=== PATIENT | female | born 1985 | race Caucasian/White ===

== ENCOUNTER → 2017-11-12 19:47 | Outpatient (REF) | payer MEDICAID, SELFPAY ==
[2017-11-17 06:57] LABS: Amphetamine 8684 ng/mL (Cutoff: 25); Amphetamines Interpretation Positive.; MDA (Ecstasy Metabolite) Negative ng/mL (Cutoff: 25); MDMA (Ecstasy) Negative ng/mL (Cutoff: 25); Methamphetamine Negative ng/mL (Cutoff: 25); Phentermine Negative ng/mL (Cutoff: 25); Pseudoephedrine/Ephedrine Negative ng/mL (Cutoff: 25)
== END ==
LOC: LBN 19:47
PROVIDERS: PCP Physician Assistant; Visit Provider Nurse Practitioner Family
DX: R82.5 Elevated urine levels of drugs, medicaments and biological substances (principal)
CPT/HCPCS: 80324

== ENCOUNTER 2017-12-27 12:13 | Day surgery (SDC) | payer MEDICAID, SELFPAY ==
[2017-12-27] VITALS (8 sets, daily range): BP systolic 106–142; BP diastolic 69–97; PULSE 62–100; RESP 16–18; TEMP 35.1–37.1; O2SAT 96–100
--- NOTE | 2017-12-27 12:51 | W.ED.GENAD ---
Discharge Plan Disposition Patient Disposition: [facility] INPATIENT Condition: Fair Discharge Details Chief Complaint: MD PHYSICIAN DERMATOLOGIST Clinical Impression: Bartholin's gland abscess Reason For Visit: cyst on labia Attending Provider: Live Sousa Primary Care Provider: Ashley Rivera ED Provider: Kayleen Green Discharge Instructions Activity:: Activity as Tolerated Diet:: As Tolerated Discharge Orders Discharge Orders: Discharge Order (Routine); Ordered 12/27/17 Ordered By: Live Sousa Discharge Data Discharge Date/Time-TO BE ENTERED AT DEPARTURE: 12/27/17 15:14 Medical Decision Making Patient 32-year-old female presenting today with chief complaint of left labia pain. Reports that symptoms began 5 days ago. Was seen by her primary care provider 4 days ago was concerned she may be developing an abscess and advised that she follow-up with MD PHYSICIAN DERMATOLOGIST. Patient is not yet had follow-up. She denies any fevers or chills. Denies any abdominal pain. Reports that she has pain with urination, particularly when wiping. Also endorses pain with bowel movements, particularly when straining. 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 She reports she did attempt to have surgical closure of this fistula after initial diagnosis but this failed. Patient subsequently became again and surgical intervention was delayed. Patient was recommended to have repeat surgical intervention with more extensive flap performed but has not had this performed as of yet. Reports that she is incontinent of stool through her vagina. Primary care was concerned that this may have been the source of her abscess. Denies any abdominal pain. Has not noted any discharge from the area. On exam, patient has a golf ball sized area of swelling on the left labia consistent with a Bartholin cyst. Surrounding area is erythematous and tender. Is warm to palpation. No active drainage noted. Patient appears nontoxic. She does appear uncomfortable, particular with ambulation. Noted to be slightly tachycardic at 100 bpm[address]febrile[address] Sousa regarding). We will obtain Carrillo catheter and he will come to evaluate the patient and perform incision and drainage. Discussed plan with the patient who is in agreement Was a slight delay in care as we are attempting to find a carrillo catheter. Called multiple hospital personnel and were unable to find this device. Spoke with Dr. Sousa again who came to evaluate the patient. He discussed placing a wick and having her return tomorrow forward catheter placement. After Dr. Sousa evaluate the patient and saw the size of her Bartholin cyst, he felt that marsupialization of the affected area is more appropriate and discussed taking the patient to the operating room. Operating room personnel and anesthesia evaluated the patient had patient was taken to the operating room for care of her Bartholin cyst. HPI General Mode of arrival: ambulatory. Date/Time Provider Initiated Documentation: 12/27/17 12:41. Limitations to Documentation: no limitations. Information obtained by: patient. History of Present Illness 32 year old F presents to the emergency department with the chief complaint of labial swelling, described as severe, Quality is described as burning, and is localized to the genitals and left. Patient reports no radiation. Patient started experiencing this day(s) (5) and it has been constant. No relieving factors improve symptom(s), Movement worsens symptoms . Patient notes no other symptoms.; denies cough, fever/chills, headaches, malaise and nausea/vomiting. Patient did receive the following treatments prior to arrival, NSAID and heat therapy Related Data Home Medications Medication Instructions Recorded Confirmed medroxyprogesterone [Depo-Provera] 150 mg IM Q3MO #1 syringe 11/12/17 12/27/17 lisdexamfetamine 30 mg capsule 30 mg PO QAM #28 tab-cap 12/18/17 12/27/17 oxycodone-acetaminophen [Percocet] 1 tab PO Q4H PRN PRN #20 tab 12/27/17 oxycodone-acetaminophen [Percocet] 1 tab PO Q4H PRN PRN #20 tab 12/27/17 Previous Rx's Medication Instructions Recorded medroxyprogesterone [Depo-Provera] 150 mg IM Q3MO #1 syringe 11/12/17 lisdexamfetamine 30 mg capsule 30 mg PO QAM #28 tab-cap 12/18/17 oxycodone-acetaminophen [Percocet] 1 tab PO Q4H PRN PRN #20 tab 12/27/17 oxycodone-acetaminophen [Percocet] 1 tab PO Q4H PRN PRN #20 tab 12/27/17 Allergies Allergy/AdvReac Type Severity Reaction Status Date / Time No Known Allergies Allergy Verified 12/27/17 12:32 General Stated Complaint: MD PHYSICIAN DERMATOLOGIST REENA: 4 Review of Systems Constitutional Reports as per HPI and Denies weakness Cardiovascular Denies chest pain and Denies dyspnea Respiratory Denies cough and Denies dyspnea Gastrointestinal Denies abdominal pain, Denies change in stool character, Denies diarrhea, Denies nausea and Denies vomiting Genitourinary Reports as per HPI, Denies hematuria, Denies urinary frequency, Denies genital pruritis, Reports genital lesions, Reports dysuria, Denies pelvic pain, Denies flank pain, Denies urinary urgency, Denies vaginal discharge and Denies vaginal odor Musculoskeletal Denies back pain and Denies tingling Integumentary/Breasts Reports as per HPI and Reports skin swelling (swelling and erythema to the left labia) Neurologic Denies tingling and Denies weakness Exam Const General: cooperative, healthy appearing, uncomfortable (patient appears uncomfortable), no acute distress, well developed and well groomed Nutritional Appearance: average body habitus and well nourished Orientation: alert and awake Eyes General: appearance normal, both eyes and all related structures Resp Effort & Inspection: normal respiratory effort, able to speak in complete sentences and no respiratory distress Auscultation: clear to auscultation bilaterally Cardio Rate: regular rate Rhythm: regular rhythm Heart Sounds: S1 normal and S2 normal GI Inspection: normal to inspection, abdominal wall ecchymosis, no edema and non-distended Palpation: soft, no hepatosplenomegaly, not firm, no guarding, no masses, not rigid and nontender Auscultation: normal bowel sounds External Female Exam: abnormal external appearance, erythema, externally tender, external swelling, no lacerations, no ecchymosis, No urethral discharge and bartholin cyst Skin General skin exam: erythema (To the left labia as above) Neuro General: alert and awake Cognition: normal cognition Speech: speech normal Gait: antalgic (Patient is clearly uncomfortable with ambulation and favoring the genitals) Psych Appearance: grossly normal and well kempt Mental Status: mental status grossly normal Speech and Movement: speech and movement normal Course Vital Signs Temperature 36.4 C L 12/27/17 12:28 Pulse 100 H 12/27/17 12:28 Respiratory Rate 18 12/27/17 12:28 Blood Pressure 118/73 12/27/17 12:28 Pulse Oximetry 100 12/27/17 12:28 Temperature 36.4 C L 12/27/17 12:28 Temperature Source Temporal Artery Scan 12/27/17 12:28 Pulse 100 H 12/27/17 12:28 Respiratory Rate 18 12/27/17 12:28 Respiratory Effort 12/27/17 12:31 Blood Pressure 118/73 12/27/17 12:28 Blood Pressure Position Supine 12/27/17 12:28 Pulse Oximetry 100 12/27/17 12:28 Oxygen Delivery Method Room Air 12/27/17 12:28 Oxygen Flow Rate 0 12/27/17 12:28
--- NOTE | 2017-12-27 13:10 | ED.GENADUL_ITS ---
Discharge Plan Disposition Patient Disposition: [facility] INPATIENT Condition: Fair Discharge Details Chief Complaint: BLOCK TESTER Clinical Impression: Bartholin's gland abscess Reason For Visit: cyst on labia Attending Provider: Live Sousa Primary Care Provider: Ashley Rivera ED Provider: Kayleen Green Discharge Instructions Activity:: Activity as Tolerated Diet:: As Tolerated Discharge Orders Discharge Orders: Discharge Order (Routine); Ordered 12/27/17 Ordered By: Live Souas Discharge Data Discharge Date/Time-TO BE ENTERED AT DEPARTURE: 12/27/17 15:14 Medical Decision Making Patient 32-year-old female presenting today with chief complaint of left labia pain. Reports that symptoms began 5 days ago. Was seen by her primary care provider 4 days ago was concerned she may be developing an abscess and advised that she follow-up with BLOCK TESTER. Patient is not yet had follow-up. She denies any fevers or chills. Denies any abdominal pain. Reports that she has pain with urination, particularly when wiping. Also endorses pain with bowel movements, particularly when straining. 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 She reports she did attempt to have surgical closure of this fistula after initial diagnosis but this failed. Patient subsequently became again and surgical intervention was delayed. Patient was recommended to have repeat surgical intervention with more extensive flap performed but has not had this performed as of yet. Reports that she is incontinent of stool through her vagina. Primary care was concerned that this may have been the source of her abscess. Denies any abdominal pain. Has not noted any discharge from the area. On exam , patient has a golf ball sized area of swelling on the left labia consistent with a Bartholin cyst. Surrounding area is erythematous and tender. Is warm to palpation. No active drainage noted. Patient appears nontoxic. She does appear uncomfortable, particular with ambulation. Noted to be slightly tachycardic at 100 bpm. Afebrile. Consulted with Dr. Sousa regarding). We will obtain Carrillo catheter and he will come to evaluate the patient and perform incision and drainage. Discussed plan with the patient who is in agreement Was a slight delay in care as we are attempting to find a carrillo catheter. Called multiple hospital personnel and were unable to find this device. Spoke with Dr. Sousa again who came to evaluate the patient. He discussed placing a wick and having her return tomorrow forward catheter placement. After Dr. Sousa evaluate the patient and saw the size of her Bartholin cyst, he felt that marsupialization of the affected area is more appropriate and discussed taking the patient to the operating room. Operating room personnel and anesthesia evaluated the patient had patient was taken to the operating room for care of her Bartholin cyst. HPI General Mode of arrival: ambulatory . Date/Time Provider Initiated Documentation: 12/27/17 12:41 . Limitations to Documentation: no limitations . Information obtained by: patient . History of Present Illness 32 year old F presents to the emergency department with the chief complaint of labial swelling, described as severe, Quality is described as burning, and is localized to the genitals and left. Patient reports no radiation. Patient started experiencing this day(s) (5) and it has been constant. No relieving factors improve symptom(s), Movement worsens symptoms . Patient notes no other symptoms.; denies cough, fever/chills, headaches, malaise and nausea/vomiting. Patient did receive the following treatments prior to arrival, NSAID and heat therapy Related Data Home Medications Medication Instructions Recorded Confirmed medroxyprogesterone [Depo-Provera] 150 mg IM Q3MO #1 syringe 11/12/17 12/27/17 lisdexamfetamine 30 mg capsule 30 mg PO QAM #28 tab-cap 12/18/17 12/27/17 oxycodone-acetaminophen [Percocet] 1 tab PO Q4H PRN PRN #20 tab 12/27/17 oxycodone-acetaminophen [Percocet] 1 tab PO Q4H PRN PRN #20 tab 12/27/17 Previous Rx's Medication Instructions Recorded medroxyprogesterone [Depo-Provera] 150 mg IM Q3MO #1 syringe 11/12/17 lisdexamfetamine 30 mg capsule 30 mg PO QAM #28 tab-cap 12/18/17 oxycodone-acetaminophen [Percocet] 1 tab PO Q4H PRN PRN #20 tab 12/27/17 oxycodone-acetaminophen [Percocet] 1 tab PO Q4H PRN PRN #20 tab 12/27/17 Allergies Allergy/AdvReac Type Severity Reaction Status Date / Time No Known Allergies Allergy Verified 12/27/17 12:32 General Stated Complaint: BLOCK TESTER REENA: 4 Review of Systems Constitutional Reports as per HPI and Denies weakness Cardiovascular Denies chest pain and Denies dyspnea Respiratory Denies cough and Denies dyspnea Gastrointestinal Denies abdominal pain, Denies change in stool character, Denies diarrhea, Denies nausea and Denies vomiting Genitourinary Reports as per HPI, Denies hematuria, Denies urinary frequency, Denies genital pruritis, Reports genital lesions, Reports dysuria, Denies pelvic pain, Denies flank pain, Denies urinary urgency, Denies vaginal discharge and Denies vaginal odor Musculoskeletal Denies back pain and Denies tingling Integumentary/Breasts Reports as per HPI and Reports skin swelling (swelling and erythema to the left labia) Neurologic Denies tingling and Denies weakness Exam Const General: cooperative, healthy appearing, uncomfortable (patient appears uncomfortable), no acute distress, well developed and well groomed Nutritional Appearance: average body habitus and well nourished Orientation: alert and awake Eyes General: appearance normal, both eyes and all related structures Resp Effort & Inspection: normal respiratory effort, able to speak in complete sentences and no respiratory distress Auscultation: clear to auscultation bilaterally Cardio Rate: regular rate Rhythm: regular rhythm Heart Sounds: S1 normal and S2 normal GI Inspection: normal to inspection, abdominal wall ecchymosis, no edema and non- distended Palpation: soft, no hepatosplenomegaly, not firm, no guarding, no masses, not rigid and nontender Auscultation: normal bowel sounds External Female Exam: abnormal external appearance, erythema, externally tender , external swelling, no lacerations, no ecchymosis, No urethral discharge and bartholin cyst Skin General skin exam: erythema (To the left labia as above) Neuro General: alert and awake Cognition: normal cognition Speech: speech normal Gait: antalgic (Patient is clearly uncomfortable with ambulation and favoring the genitals) Psych Appearance: grossly normal and well kempt Mental Status: mental status grossly normal Speech and Movement: speech and movement normal Course Vital Signs Temperature 36.4 C L 12/27/17 12:28 Pulse 100 H 12/27/17 12:28 Respiratory Rate 18 12/27/17 12:28 Blood Pressure 118/73 12/27/17 12:28 Pulse Oximetry 100 12/27/17 12:28 Temperature 36.4 C L 12/27/17 12:28 Temperature Source Temporal Artery Scan 12/27/17 12:28 Pulse 100 H 12/27/17 12:28 Respiratory Rate 18 12/27/17 12:28 Respiratory Effort 12/27/17 12:31 Blood Pressure 118/73 12/27/17 12:28 Blood Pressure Position Supine 12/27/17 12:28 Pulse Oximetry 100 12/27/17 12:28 Oxygen Delivery Method Room Air 12/27/17 12:28 Oxygen Flow Rate 0 12/27/17 12:28
--- NOTE | 2017-12-27 14:42 | W.PM.HP.N ---
Date of service: 12/27/17 Assessment and Plan (1) Bartholin's gland abscess: Current visit: Yes Status: Acute It was my impression that the cyst or abscess is too large to be peformed in the emergency department under local anesthetic and particularly due to the patient's discomfort. We will proceed with I&D under anesthesia. I would not recommend repair of the fistula at this point particularly in the setting of a regional infection. This should be staged at a later date unless it is found that a connection exists with the fistula to the abscess. Risks of surgery were disussed with the patient. All questions were answered to the patient's satisfaction and consent was obtained. 32 year old presents to the emergency dept with complaint of left vulvar swelling and pain that has been present for the last 4-5 days. She denies any fevers or chills. The patient does have a rectovaginal fistula following a 4th degree obstetrical laceration occurring in 2014. She did undergo a repair once but the fistula recurred. Review of Systems Review of Systems All systems reviewed & are unremarkable except as noted in HPI and below Meds Home Medications Medication Instructions Recorded Confirmed Type medroxyprogesterone [Depo-Provera] 150 mg IM Q3MO #1 syringe 11/12/17 12/27/17 Rx lisdexamfetamine 30 mg capsule 30 mg PO QAM #28 tab-cap 12/18/17 12/27/17 Rx Allergies Allergy/AdvReac Type Severity Reaction Status Date / Time No Known Allergies Allergy Verified 12/27/17 12:32 Exam Resp Auscultation: clear to auscultation bilaterally Cardio Rate: regular rate Rhythm: regular rhythm Other: On the left vulva there is a large 4-5 cm fluctuant region that appears to be a Bartholin's cyst / abscess. There is minimal erythema but it is extremely tender to touch. I was able to identify the fistula just posterior to the introitus and it does not appear to be associated with the abscess.
[2017-12-27] MEDS: Lactated Ringers 1,000 ML 125 ML IV (15:04)
--- NOTE | 2017-12-27 16:16 | W.PM.OP ---
Date of service: 12/27/17 Time of Service: 16:16 Operative Note DATE OF PROCEDURE: 12/27/17 PRE-OP DIAGNOSIS: Left Bartholin's Abscess POST-OP DIAGNOSIS: same PROCEDURE: Marsupialization of left Bartholin's Abscess and insertion of drain SURGEON: Live Sousa ANESTHESIA: EMILY ESTIMATED BLOOD LOSS: 10 PATHOLOGY: other (Wound Cultures) COMPLICATIONS: None Patient was transported to: PACU Patient's condition: stable Implants: [place] drain Findings: 4-5 cm left Bartholins abscess. No obvious connection to R-V fistula that has been longstanding. Procedure Description: The patient was taken to the operating room and after adequate general anethesia, the patient was placed in lithotomy position. The patient was prepped and draped in the usual sterile manner. A #15 blade scalpel was used to make an approximately 3 cm incision on the inner aspect of the labia. Copious purulent material was expressed. A thorough irrigation was performed. The edges of the wound were marsupialized and sewn with the abscess pocket everted against the skin edge. A 4-5 cm length of 1/4 inch arnold was sewn into the wound for drainage with a 2-0 silk suture. Excellent hemostasis was achieved. All instrumentation was removed. The procedure was concluded. Sponge, needle and instrument counts were correct at the conclusion of the procedure. The procedure was tolerated well and the patient was transferred to PACU in stable condition.
[2017-12-27] MEDS: Ketorolac 30 MG/ML VIAL IVP (17:27)
== END 2017-12-27 18:37 | disposition home or self-care (01) ==
LOC: ER 13:53 → SUR 15:15 → MS 16:39
PROVIDERS: Emergency Provider Physician Assistant; PCP Nurse Practitioner Family; Visit Provider Obstetrics & Gynecology
PROC: (CPT 56740; principal; 2017-12-27 14:55)
DX: N75.1 Abscess of Bartholin's gland (principal)
CPT/HCPCS: 56440; 81025; 87077; 99220; 99285; 87070; 87075; 87186; 87205; 99283; J0131; J1100; J1885; J2250; J2405

== ENCOUNTER 2018-09-27 00:41 | Emergency (ER) | payer MEDICAID, SELFPAY ==
[2018-09-27 00:45] VITALS: BP 113/72; PULSE 82; RESP 16; TEMP 36.8; O2SAT 99
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
[2018-09-27 01:22] VITALS: BP 111/66; PULSE 80; RESP 16; O2SAT 98
[2018-09-27 01:29] LABS: Abs Immature Grans 0.01 k/cumm (0.0-0.09); Absolute Basophil Count 0.05 k/cumm (0.0-0.2); Absolute Eosinophil Count 0.25 k/cumm (0.0-0.7); Absolute Lymphocyte Count 2.64 k/cumm (1.2-3.4); Absolute Monocyte Count 0.58 k/cumm (0.11-0.7); Absolute Neutrophil Count 7.09 k/cumm (1.2-6.7); Basophils % 0.5; Eosinophils % 2.4; HGB 13.6 g/dL (12.0-15.5); Immature Grans % 0.1; Lymphocytes % 24.9; Mean Corp. HGB Concentration 34.9 g/dL (32.0-36.0); Mean Corpuscular Hemoglobin 32.8 pg (27.0-33.0); Mean Platelet Volume 10.4 fL (8.0-11.0); Monocytes % 5.5; Neutrophils % 66.6; Platelet Count 252 x1000/uL (130-400); RBC 4.15 m/cumm (4.00-5.20); RBC Distribution Width 12.4 % (11.7-14.6); White Blood Cell Count 10.62 k/cumm (4.4-10.8)
[2018-09-27 01:42] LABS: ALT 22 U/L (12-78); AST 10 U/L (15-37); Albumin 3.9 g/dL (3.4-5.0); Alkaline Phosphatase 72 U/L (46-116); Anion Gap 11.1 mmol/L (3-11); BUN 14 mg/dL (7-18); Bilirubin, Total 0.4 mg/dL (0.2-1.0); CO2 24.9 mmol/L (21.0-32.0); CREATININE 0.82 mg/dL (0.55-1.02); Calcium 8.8 mg/dL (8.5-10.1); Chloride 106 mmol/L (98-107); Glucose 106 mg/dL (70-100); Potassium 3.3 mmol/L (3.5-5.1); Sodium 142 mmol/L (136-145); Total Protein 7.3 g/dL (6.4-8.2)
[2018-09-27] MEDS: Normal Saline 1,000 ML 150 ML IV (01:44)
--- NOTE | 2018-09-27 01:45 | DI.CT_ITS ---
SYMPTOM/DIAGNOSIS: VAGINAL BLEEDING WITH GAS PRODUCTION S/P FISTULA REPAIR ABDOMINAL AND PELVIC CT: 09/27 CT examination of the abdomen and pelvis was performed with a bolus infusion of 100 cc Omnipaque 350. Images obtained through the lung bases are unremarkable. There is an incidental approximately 1 cm right hepatic lobe peripherally nodular enhancing low attenuation lesion consistent with hemangioma. Otherwise, liver, spleen and pancreas were unremarkable. The gallbladder was contracted but otherwise unremarkable.. No biliary dilatation seen. Adrenals and kidneys appear normal. No urinary tract calcification. Abdominal aorta and major abdominal branches appear normal. No abdominal wall hernia seen. No abdominal or pelvic adenopathy seen. Appendix is normal. No evidence of bowel obstruction. The patient has reportedly had a recent fistula repair. No previous images available for comparison. There is a 14 x 14 x 18 mm in diameter fluid and gas containing peripherally enhancing collection seen adjacent to vagina and anus. The findings are suggestive of an abscess at this site. No free intraperitoneal air seen. Probable small Bartholin gland also noted on the right measuring about 10 mm in diameter but this could also represent a small infected or noninfected fluid collection.
[2018-09-27] MEDS: Omnipaque 350 MG/ML 100 ML BTL IJ (02:03)
[2018-09-27] MEDS: Normal Saline Flush 10 ML SYR IVP (02:04)
--- NOTE | 2018-09-27 02:06 | DI.VRAD_ITS ---
EXAM: CT Abdomen and Pelvis With Contrast EXAM DATE/TIME: 09/27/2018 01:06 CLINICAL HISTORY: 32 years old, female; Other: Pelvic; Prior surgery; Surgery date: <1 month; Surgery type: Rectovaginal fistula repair at [facility] 09/15/18 with anal sphincteroplasty with rectovaginal fistula closure and perineal body reconstruction. Prior repair in 2013; Patient HX: Bleeding with gas production and pain TECHNIQUE: Imaging protocol: Axial computed tomography images of the abdomen and pelvis with intravenous contrast. Coronal and sagittal reformatted images were created and reviewed. Radiation optimization: All CT scans at this facility use at least one of these dose optimization techniques: automated exposure control; mA and/or kV adjustment per patient size (includes targeted exams where dose is matched to clinical indication); or iterative reconstruction. Contrast material: OMNIPAQUE 350; Contrast volume: 83 ml; Contrast route: IV LAC; COMPARISON: No relevant prior studies available. FINDINGS: Liver: Hepatic hypodensities, too small to characterize, likely cysts. No suspicious hepatic masses. Focal fat in the liver near the fissure for the ligamentum teres. Gallbladder and bile ducts: No calcified stones. No ductal dilation. Pancreas: No ductal dilation. No masses. Spleen: No splenomegaly or focal lesions. Adrenals: No mass. Kidneys and ureters: No hydronephrosis. No renal masses. Stomach and bowel: No obstruction. No mucosal thickening. Appendix: No evidence of appendicitis. Intraperitoneal space: No free air. No significant fluid collection. Vasculature: No abdominal aortic aneurysm. Lymph nodes: No significantly enlarged lymph nodes. Bladder: Unremarkable as visualized. Reproductive: 14 x 14 x 18 mm fluid and gas containing structure, in the left paramedian perineum, probably between the vagina and anus. Faint peripheral enhancement. Small amount of fluid and debris in the vagina more anteriorly. Non-peripherally enhancing 10 mm structure right lateral vaginal wall, appearance suggests a Bartholin gland or other benign structure. Bones/joints: No acute fracture. No dislocation. Soft tissues: No suspicious lesions. IMPRESSION: 1. 14 x 14 x 18 mm fluid and gas containing structure, in the left paramedian perineum, probably between the vagina and anus. Faint peripheral enhancement. 2. Small amount of fluid and debris in the vagina more anteriorly. The findings are worrisome for a fistula and/or abscess development. 3. Non-peripherally enhancing 10 mm structure right lateral vaginal wall, appearance suggests a Bartholin gland or other benign structure. Dictated and Authenticated by: Mimi Wang MD. Ordering:HONG Reynaga MD
[2018-09-27 02:09] VITALS: BP 107/62; PULSE 79; O2SAT 98
[2018-09-27] MEDS: POTASSIUM CHLORIDE/0.9% NACL 1,000 ML 125 MEQ IV (02:48)
[2018-09-27] MEDS: PIPERACILLIN/TAZO 3.375 GM in Normal Saline 50 ML IVPB (02:48)
[2018-09-27 02:49] VITALS: BP 112/67; PULSE 83; RESP 16; TEMP 36.7; O2SAT 98
== END 2018-09-27 03:10 | disposition short-term general hospital (02) ==
PROVIDERS: Emergency Provider Emergency Medicine; PCP Nurse Practitioner Family
DX: N82.3 Fistula of vagina to large intestine (principal); N99.820 Postprocedural hemorrhage of a genitourinary system organ or structure following a genitourinary system procedure
CPT/HCPCS: 36415; 80053; 86850; 86900; 86901; 96361; 96365; 96368; 99285; 74177; 85025; 99284; J2543; J3490

== ENCOUNTER 2019-01-28 14:02 | Outpatient (REF) | payer MEDICAID, SELFPAY ==
[2019-02-01 19:04] LABS: Carboxy-THC Interpretation Positive.; Delta-9 CarboxyThc by LC-MS/MS 64 ng/mL (Cutoff:<3)
== END 2019-01-28 14:22 ==
LOC: LBN 14:02
PROVIDERS: PCP Nurse Practitioner Family; Visit Provider Nurse Practitioner Family
DX: Z51.81 Encounter for therapeutic drug level monitoring (principal)
CPT/HCPCS: 80349

== ENCOUNTER 2019-02-14 13:30 | Emergency (ER) | payer MEDICAID, SELFPAY ==
[2019-02-14 13:33] VITALS: BP 121/77; PULSE 91; RESP 16; TEMP 36.1; O2SAT 97
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
== END 2019-02-14 14:20 | disposition home or self-care (01) ==
PROVIDERS: Emergency Provider Student in an Organized Health Care Education/Training Program; PCP Nurse Practitioner Family
DX: S09.90XA Unspecified injury of head, initial encounter (principal); R20.2 Paresthesia of skin
CPT/HCPCS: 99282

== ENCOUNTER 2020-02-27 22:47 | Emergency (ER) | payer MEDICAID, SELFPAY ==
[2020-02-27 22:52] VITALS: BP 153/89; PULSE 66; RESP 20; TEMP 36.4; O2SAT 96
[2020-02-27] MEDS: Normal Saline 1,000 ML 1000 ML IV (23:00)
--- NOTE | 2020-02-27 23:00 | DI.CT_ITS ---
EXAM: CT RENAL COLIC WO INDICATION: left flank pain. COMPARISON: CT CT ABDOMEN PELVIS W from 09/27/2018 TECHNIQUE: CT examination was performed without contrast administration. FINDINGS: Images obtained through the lung bases are unremarkable. Visualized portions of the liver and splee n appear intact. Visualized portions of the pancreas are unremarkable. Gallbladder and bile ducts are CT normal. Abdominal aorta is of normal diameter. No significant abdominal wall hernia. There is an apparent enterostomy of the right upper quadrant. There is mild prominence of mesenteric lymph nodes, nonspecific. No other adenopathy identified. Adrenals appear normal bilaterally. The right kidney appears normal with no mass, hydronephrosis, or nephrolithiasis. Left kidney is moderately hydronephrotic and contains small non-obstructing stone of the midpole. Le ft ureter is dilated to the ureterovesical junction where there is an obstructing 2 millimeter in melquiades meter stone. Urinary bladder is empty. IMPRESSION: Left hydronephrosis and hydroureter secondary to an obstructing 2 millimeter in diameter left uretero vesical junction stone. Non-obstructing left renal calculus also noted. RADIATION DOSE DELIVERED: 547.71mGy.cm Total DLP
[2020-02-27] MEDS: Ketorolac 15 MG/ML VIAL IVP (23:05)
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
[2020-02-27 23:09] LABS: Abs Immature Grans 0.02 10^3/uL (0.0-0.06); Absolute Basophil Count 0.04 10^3/uL (0.0-0.2); Absolute Eosinophil Count 0.23 10^3/uL (0.0-0.7); Absolute Lymphocyte Count 2.38 10^3/uL (1.2-3.4); Absolute Neutrophil Count 6.17 10^3/uL (1.2-6.7); Basophils % 0.4; Eosinophils % 2.5; HGB 14.8 g/dL (11.2-15.7); Immature Grans % 0.2; Lymphocytes % 25.5; MCH 32.7 pg (27.0-33.0); MCHC 34.4 % (32.0-36.0); MCV 95.1 fL (80-95); MPV 10.8 fL (8.0-11.0); Monocytes % 5.4; Nucleated RBC 0 %; Platelet Count 225 10^3/uL (130-400); RBC 4.52 10^6/uL (3.93-5.22); RDW-SD 42.1 fL; WBC 9.34 10^3/uL (4.4-10.8)
[2020-02-27] MEDS: Ondansetron 4 MG/2 ML VIAL IVP (23:12)
[2020-02-27 23:23] LABS: ALT 23 U/L (14-59); AST 11 U/L (15-37); Albumin 4.3 g/dL (3.4-5.0); Alkaline Phosphatase 67 U/L (46-116); Anion Gap 7.5 mmol/L (3-11); BUN 11 mg/dL (7-18); Bilirubin, Total 0.3 mg/dL (0.2-1.0); CO2 27.5 mmol/L (21.0-32.0); CREATININE 1.01 mg/dL (0.55-1.02); Chloride 105 mmol/L (98-107); Glucose 129 mg/dL (74-106); Potassium 3.4 mmol/L (3.5-5.1); Sodium 140 mmol/L (136-145); Total Protein 7.3 g/dL (6.4-8.2)
[2020-02-27 23:24] LABS: Bilirubin, Direct 0.08 mg/dL (0.00-0.20); Bilirubin, Total 0.3 mg/dL (0.2-1.0); Lipase 315 U/L (73-393)
[2020-02-27] MEDS: HYDROmorphone 2 MG/ML VIAL 1 MG IVP (23:33)
--- NOTE | 2020-02-27 23:58 | DI.VRAD_ITS ---
PROCEDURE INFORMATION: Exam: CT Abdomen And Pelvis Without Contrast Exam date and time: 02/27/2020 11:01 PM Age: 34 years old Clinical indication: Other: L flank pain; Prior surgery; Surgery date: 1-6 months; Surgery type: Surgery 6 weeks ago , rectovaginal fistula, colostomy; Patient HX: Sudden onset of left flank pain TECHNIQUE: Imaging protocol: Computed tomography of the abdomen and pelvis without contrast. Radiation optimization: All CT scans at this facility use at least one of these dose optimization techniques: automated exposure control; mA and/or kV adjustment per patient size (includes targeted exams where dose is matched to clinical indication); or iterative reconstruction. COMPARISON: CT ABDOMEN PELVIS W 09/27/2018 1:33 AM FINDINGS: Lungs: The visualized portions of the lung bases demonstrate no acute disease. Liver: The liver is unremarkable. Gallbladder and bile ducts: The gallbladder is unremarkable. The biliary system is normal. Pancreas: The pancreas is normal. Spleen: The spleen is normal. Adrenal glands: The adrenal glands are normal. Kidneys and ureters: The right kidney is normal. The left kidney demonstrates mild perinephric fat stranding. There is mild left hydronephrosis. There is mild left ureteral nephrosis. There is a 2 mm x 2 mm stone impacted in the left UVJ. The right ureter is normal. Stomach and bowel: There is no evidence of intestinal perforation or obstruction. Appendix: No evidence of appendicitis. Intraperitoneal space: There is a small amount of free fluid noted in the pelvis. No fluid collections. No pneumoperitoneum. Vasculature: Unremarkable. No abdominal aortic aneurysm. Lymph nodes: Unremarkable. No enlarged lymph nodes. Urinary bladder: The urinary bladder is under distended and difficult to evaluate. Reproductive: Unremarkable as visualized. Bones/joints: No acute abnormality or aggressive osseous lesion. Soft tissues: There is an ostomy in the right hemiabdomen which appears unremarkable. IMPRESSION: 1. Mild left obstructive uropathy caused by a 2 mm stone impacted in the left UVJ. 2. Incidental findings as detailed above. Dictated and Authenticated by: Everett Maloney MD. Ordering:EDELMIRA Ramon MD
[2020-02-28 00:11] LABS: Bilirubin Negative (Negative); Blood Large (Negative); Clarity Sl Cloudy (Clear); Glucose Negative (Negative); Ketones Negative (Negative); Leukocyte Esterase Negative (Negative); Nitrite Negative (Negative); Specific Gravity >= 1.030 (1.005-1.025); Urobilinogen 0.2 EU/dL (Up TO 0.2)
[2020-02-28 00:14] LABS: Bacteria Few HPF (Negative); Epithelial Cells Few HPF (Negative); WBC 0-2 HPF (0-5)
[2020-02-28 00:15] LABS: C & S Indicated? No; Casts Negative LPF (Negative); Crystals Few Calcium Oxalate HPF (Negative); Mucus Negative (Negative)
[2020-02-28 00:37] VITALS: BP 121/78; PULSE 88; RESP 16; O2SAT 97
[2020-02-28 00:45] VITALS: BP 121/78; PULSE 88; RESP 16; O2SAT 97
--- NOTE | 2020-02-28 01:55 | NUR.NOTE ---
referral faxed to [facility] for a kidney stone 02/28/2020 @ 0157 libl Nursing Note:
== END 2020-02-28 00:47 | disposition home or self-care (01) ==
PROVIDERS: Emergency Provider Emergency Medicine; PCP Nurse Practitioner Family
DX: N13.2 Hydronephrosis with renal and ureteral calculous obstruction (principal)
CPT/HCPCS: 36415; 80053; 81025; 83690; 96361; 96374; 96375; 99284; 74176; 81003; 81015; 82247; 82248; 85025; J1885; J2405

== ENCOUNTER 2020-05-21 16:31 | Outpatient (REF) | payer MEDICAID, SELFPAY | END 2020-05-21 16:32 | disposition home or self-care (01) | LOC: LBN 16:31 | PROVIDERS: PCP Nurse Practitioner Family; Visit Provider Nurse Practitioner Family | DX: N82.3 Fistula of vagina to large intestine (principal) | CPT/HCPCS: 87070; 87205 ==

== ENCOUNTER 2020-05-22 16:12 | Emergency (ER) | payer MEDICAID, SELFPAY ==
[2020-05-22 16:21] VITALS: BP 134/50; PULSE 129; RESP 16; TEMP 36.3; O2SAT 100
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
[2020-05-22] MEDS: ACETAMINOPHEN 1,000 MG/100 ML BTL 400 MG IVPB (17:07)
[2020-05-22] MEDS: Normal Saline 1,000 ML 1000 ML IV (17:08)
[2020-05-22 17:13] VITALS: BP 131/90; PULSE 117; PULSE 125; RESP 18; O2SAT 100
[2020-05-22 17:14] VITALS: PULSE 126; RESP 15; O2SAT 100
[2020-05-22 17:15] VITALS: BP 116/83; PULSE 112; PULSE 119; RESP 10; O2SAT 100
[2020-05-22 17:30] VITALS: BP 117/76; PULSE 108; RESP 15; O2SAT 100
[2020-05-22 17:37] VITALS: BP 117/76; PULSE 110; RESP 18; TEMP 36.4; O2SAT 100
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
== END 2020-05-22 17:49 | disposition home or self-care (01) ==
PROVIDERS: Emergency Provider Physician Assistant; PCP Nurse Practitioner Family
DX: N75.1 Abscess of Bartholin's gland (principal)
CPT/HCPCS: 96361; 96365; 96375; 99252; 99284; 87070; 87075; 87205; J0131

== ENCOUNTER 2020-06-04 12:17 | Outpatient (REF) | payer MEDICAID, SELFPAY ==
[2020-06-08 19:29] LABS: 2-OH-Ethyl-Flurazepam Negative ng/mL (Cutoff: 10); 7-NH-Clonazepam Negative ng/mL (Cutoff: 10); 7-NH-Flunitrazepam Negative ng/mL (Cutoff: 10); Alpha OH-Alprazolam Negative ng/mL (Cutoff: 10); Alpha-OH Midazolam Negative ng/mL (Cutoff: 10); Alpha-OH-Triazolam Negative ng/mL (Cutoff: 10); Alprazolam Negative ng/mL (Cutoff: 10); Benzodiazepines Interpretation Negative.; Chlordiazepoxide Negative ng/mL (Cutoff: 10); Clobazam Negative ng/mL (Cutoff: 10); Clonazepam Negative ng/mL (Cutoff: 10); Diazepam Negative ng/mL (Cutoff: 10); Flurazepam Negative ng/mL (Cutoff: 10); Lorazepam Negative ng/mL (Cutoff: 10); Midazolam Negative ng/mL (Cutoff: 10); N-Desmethylclobazam Negative ng/mL (Cutoff: 10); Prazepam Negative ng/mL (Cutoff: 10); Temazepam Negative ng/mL (Cutoff: 10); Triazolam Negative ng/mL (Cutoff: 10); Zolpidem Carboxylic acid Negative ng/mL (Cutoff: 10)
== END 2020-06-04 12:18 | disposition home or self-care (01) ==
LOC: LBN 12:17
PROVIDERS: PCP Nurse Practitioner Family; Referring Provider Nurse Practitioner Family; Visit Provider Nurse Practitioner Family
DX: F90.9 Attention-deficit hyperactivity disorder, unspecified type (principal); Z51.81 Encounter for therapeutic drug level monitoring
CPT/HCPCS: 80346

== ENCOUNTER 2020-08-15 11:49 | Outpatient (REF) | payer MEDICAID, SELFPAY ==
--- NOTE | 2020-08-15 11:20 | PAPFT_PTH ---
PATIENT: Lexy León LOC: [facility] U#:[id number] AGE/SX: 34/F ROOM: RE08/15/[address]: Alice Rush NP : 1985 BED: DIS: 08/15/2020 SPEC #: [id number] RECD: 08/15/20 17:58 STATUS: BLAKE PAGE #: [id number] LUDY: 08/15/20 11:[address]: Adri SHIRLEY,Alice DEPT: [facility] Cytology RECD BY: Jennifer Beasley ENTERED: 08/15/20 17:58 SP TYPE: PAPFT OTHR DR: Ashley Rivera APRN Tissues: 1 - CX/ENDOCX FOR PAP SMEARS Procedures: PAP THIN PREP/UVM Screening HPV DNA PROBE Comments: [id number] (CHLAMYDIA/GC)
[2020-08-16 14:37] LABS: Chlamydia Result Negative (Negative); GC Result Negative (Negative)
== END 2020-08-15 11:50 | disposition home or self-care (01) ==
LOC: LBN 11:49
PROVIDERS: PCP Nurse Practitioner Family; Visit Provider Nurse Practitioner Women's Health
DX: Z11.3 Encounter for screening for infections with a predominantly sexual mode of transmission (principal); Z12.4 Encounter for screening for malignant neoplasm of cervix; R87.612 Low grade squamous intraepithelial lesion on cytologic smear of cervix (LGSIL); Z11.51 Encounter for screening for human papillomavirus (HPV); R87.810 Cervical high risk human papillomavirus (HPV) DNA test positive
CPT/HCPCS: 87491; 87591; 88142; 87624

== ENCOUNTER 2020-08-16 02:43 | Outpatient (CLI) | payer MEDICAID, SELFPAY ==
[2020-08-17 09:45] LABS: Hepatitis C Ab w Rflx HCV PCR Negative (Negative)
[2020-08-17 09:50] LABS: HIV-1/2 Ag & Ab Screen Negative (Negative)
[2020-08-17 13:27] LABS: Syphilis Total Ab w/Reflex Nonreactive (Nonreactive)
== END 2020-08-16 02:44 | disposition home or self-care (01) ==
LOC: LBO 02:43
PROVIDERS: PCP Nurse Practitioner Family; Visit Provider Nurse Practitioner Women's Health
DX: Z11.3 Encounter for screening for infections with a predominantly sexual mode of transmission (principal); Z11.4 Encounter for screening for human immunodeficiency virus [HIV]; Z11.59 Encounter for screening for other viral diseases
CPT/HCPCS: 36415; 86803; 87389; 86780

== ENCOUNTER 2020-08-23 10:58 | Outpatient (CLI) | payer MEDICAID, SELFPAY ==
--- NOTE | 2020-08-23 10:45 | RT.EKG_ITS ---
APPROVED REPORT Exam: Resting ECG Reason for Exam: Baseline for use of stimulant medication Patient Location: O HR:119 bpm ECG Measurements Heart Rate 119 AXIS CA 146 P 77 QRSd 67 QRS -55 QT 332 T 65 QTc 468 Conclusion Sinus tachycardia...rate> 99 Ventricular premature complex...V complex w/ short R-R interval Left anterior fascicular block...axis(240,-40), init forces inf
== END 2020-08-23 10:59 | disposition home or self-care (01) ==
LOC: DI.KIM 11:03
PROVIDERS: PCP Nurse Practitioner Family; Visit Provider Nurse Practitioner Family
DX: Z79.899 Other long term (current) drug therapy (principal); I44.4 Left anterior fascicular block
CPT/HCPCS: 93010

== ENCOUNTER 2020-08-24 09:15 | Outpatient (RCR) | payer MEDICAID, SELFPAY ==
--- NOTE | 2020-08-24 09:30 | HOLTER_ITS ---
APPROVED REPORT Conclusion This is a 48-hour monitor ordered for indication of palpitations. The patient was in normal sinus rhythm for the majority recording with an average heart rate of 90 bp m. There were no episodes of ventricular tachycardia nor any episodes of supraventricular tachycardia There were frequent PVCs (5%). There were rare PACs. There were no episodes of atrial fibrillation, no pauses greater than 3 seconds and no evidence of hi gh degree heart block. There was 1 patient triggered event associated with normal sinus rhythm.
== END 2020-09-19 23:59 | disposition home or self-care (01) ==
LOC: RT 09:15
PROVIDERS: PCP Nurse Practitioner Family; Visit Provider Nurse Practitioner Family
DX: R00.2 Palpitations (principal); R94.31 Abnormal electrocardiogram [ECG] [EKG]; I49.3 Ventricular premature depolarization
CPT/HCPCS: 93225; 93226

== ENCOUNTER 2020-10-04 11:23 | Outpatient (REF) | payer MEDICAID, SELFPAY ==
--- NOTE | 2020-10-04 10:40 | ENDO_PTH ---
PATIENT: Lexy León LOC: N U#:[id number] AGE/SX: 34/F ROOM: RE10/04/[address]: Estephania Barrow : 1985 BED: DIS: 10/04/2020 SPEC #: [id number] RECD: 10/04/20 12:44 STATUS: BLAKE REJessica #: [id number] LUDY: 10/04/20 10:[address]: Estephania Barrow DEPT: Surgical Specimen RECD BY: Jennifer Beasley ENTERED: 10/04/20 12:45 SP TYPE: Endo OTHR DR: Ashley Rivera APRN Tissues: 1 - ENDOCERVICAL BX/CURRETTE Procedures: GROSS AND MICRO LEVEL 4 Comments: [id number]
== END 2020-10-04 11:24 | disposition home or self-care (01) ==
LOC: LBN 11:23
PROVIDERS: PCP Nurse Practitioner Family; Visit Provider Obstetrics & Gynecology Gynecology
DX: R87.612 Low grade squamous intraepithelial lesion on cytologic smear of cervix (LGSIL) (principal); R87.810 Cervical high risk human papillomavirus (HPV) DNA test positive; N88.8 Other specified noninflammatory disorders of cervix uteri
CPT/HCPCS: 88305

== ENCOUNTER 2021-06-03 15:59 | Outpatient (REF) | payer MEDICAID, SELFPAY ==
[2021-06-05 14:21] LABS: Chlamydia Result Negative (Negative); GC Result Negative (Negative)
== END 2021-06-03 16:00 | disposition home or self-care (01) ==
LOC: LBN 15:59
PROVIDERS: PCP Nurse Practitioner Family; Visit Provider Family Medicine
DX: A74.9 Chlamydial infection, unspecified (principal)
CPT/HCPCS: 87491; 87591

== ENCOUNTER 2021-06-17 03:34 | Outpatient (CLI) | payer MEDICAID, SELFPAY ==
[2021-06-17 09:42] LABS: ALT 24 U/L (14-59); AST 13 U/L (15-37); Albumin 3.8 g/dL (3.4-5.0); Alkaline Phosphatase 60 U/L (46-116); Anion Gap 8.9 mmol/L (3-11); BUN 8 mg/dL (7-18); Bilirubin, Total 0.3 mg/dL (0.2-1.0); CO2 23.1 mmol/L (21.0-32.0); CREATININE 0.8 mg/dL (0.55-1.02); Calcium 8.2 mg/dL (8.5-10.1); Chloride 109 mmol/L (98-107); Glucose 114 mg/dL (74-106); Potassium 4.1 mmol/L (3.5-5.1); Sodium 141 mmol/L (136-145); Total Protein 6.5 g/dL (6.4-8.2)
[2021-06-17 09:54] LABS: Calculated LDL 154 mg/dL (<100); Cholesterol 249 mg/dL (<200); HDL Cholesterol 71 mg/dL (40-60); Triglyceride 122 mg/dL (<150)
[2021-06-18 08:55] LABS: Hepatitis B Surface Ag Negative (Negative)
[2021-06-18 09:33] LABS: Hepatitis C Ab w Rflx HCV PCR Negative (Negative)
[2021-06-18 09:50] LABS: HIV-1/2 Ag & Ab Screen Negative (Negative)
[2021-06-18 11:00] LABS: Syphilis Serology (RPR) Negative (Negative)
== END 2021-06-17 03:35 | disposition home or self-care (01) ==
LOC: LBO 03:34
PROVIDERS: Nurse Practitioner Family; PCP Nurse Practitioner Family; Visit Provider Family Medicine
DX: I10 Essential (primary) hypertension (principal); R00.0 Tachycardia, unspecified; Z13.6 Encounter for screening for cardiovascular disorders; Z11.3 Encounter for screening for infections with a predominantly sexual mode of transmission; Z11.4 Encounter for screening for human immunodeficiency virus [HIV]; Z11.59 Encounter for screening for other viral diseases
CPT/HCPCS: 36415; 80053; 80061; 86803; 87340; 87389; 84443; 86592

== ENCOUNTER 2021-09-08 20:57 | Emergency (ER) | payer MEDICAID, SELFPAY ==
[2021-09-08 21:10] VITALS: BP 120/86; PULSE 68; RESP 18; TEMP 37.4; O2SAT 99
--- NOTE | 2021-09-08 21:21 | W.ED.GENAD ---
Discharge Plan Disposition Patient Disposition: HOME Condition: Stable Discharge Details Clinical Impression: Visit for suture removal, Cellulitis Primary Care Provider: pJ Mathew ED Provider: Miguel Ángel Rosa Home Meds and New Rx's Prescriptions: New cephalexin 500 mg capsule 500 mg PO QID 5 Days Qty: 20 0RF No Action medroxyprogesterone [Depo-Provera] 150 mg/mL syringe 150 mg IM Q3MO Qty: 1 3RF dextroamphetamine sulfate 10 mg tablet 10 mg PO BID MDD 10mg Qty: 56 0RF ibuprofen 800 mg tablet 800 mg PO Q8H PRNQty: 30 0RF Discharge Instructions Instructions: Cellulitis (ED) Additional Instructions: Please follow-up with dermatology team at [facility] for close follow-up. Please return to the emergency department if you develop worsening signs of infection such as spreading redness fever pain pus drainage or other abnormal symptoms. Please take your medications as prescribed. Medical Decision Making 35-year-old female presents for suture removal of biopsy site from basal cell removal 3 weeks ago, does have some surrounding erythema and induration to wound site, running nonabsorbable sutures in place, no purulence no crepitus no bulla or vesicles. Patient is afebrile nontoxic no systemic signs of illness. Likely localized cellulitis at biopsy site. Running sutures have been removed completely. Dressing applied, will dose Keflex p.o. here in department and prescribed 5 days of Keflex as an outpatient. Patient encouraged to follow-up with the dermatology team who performed the biopsy. Given strict return precautions for worsening signs of infection. HPI General Date/Time Provider Initiated Documentation: 09/08/21 21:09. HPI Narrative: 35-year-old female endorses basal cell removal from her right shoulder at [facility] approximately 3 weeks ago, sutures been in place since that time, is following up at [facility] as needed, was told that if she needs she can go to the emergency room to have her sutures removed, endorses some redness to the wound area denies fevers chills or other systemic signs of illness. Related Data Home Medications Medication Instructions Recorded Confirmed ibuprofen 800 mg tablet 800 mg PO Q8H PRN #30 tabs 05/22/20 07/22/21 medroxyprogesterone 150 mg/mL 150 mg IM Q3MO #1 SYRG 07/22/21 07/22/21 intramuscular syringe (Depo-Provera) dextroamphetamine sulfate 10 mg 10 mg PO BID #56 tabs 08/22/21 tablet cephalexin 500 mg capsule 500 mg PO QID 5 days #20 caps 09/08/21 Previous Rx's Medication Instructions Recorded ibuprofen 800 mg tablet 800 mg PO Q8H PRN #30 tabs 05/22/20 medroxyprogesterone 150 mg/mL 150 mg IM Q3MO #1 SYRG 07/22/21 intramuscular syringe (Depo-Provera) dextroamphetamine sulfate 10 mg 10 mg PO BID #56 tabs 08/22/21 tablet cephalexin 500 mg capsule 500 mg PO QID 5 days #20 caps 09/08/21 Allergies Allergy/AdvReac Type Severity Reaction Status Date / Time No Known Allergies Allergy Verified 07/22/21 09:43 General REENA: 3 Review of Systems Narrative: Review of Systems Constitutional: negative Eyes: negative ENT: negative Cardiovascular: negative Respiratory: negative Gastrointestinal: negative : negative Musculoskeletal: negative Skin: Sutures, redness near wound Neurologic: negative Psych: negative PFSH All Active Problems (Updated 09/08/21 @ 21:26 by Miguel Ángel Rosa MD) Visit for suture removal (Acute) Cellulitis (Acute) Hyperlipidemia (Acute) Hyperglycemia (Acute) 05/2021, FBS-114 COVID-19 vaccine series declined (Acute) 10/04/2020. I strongly encouraged the patient to consider receiving the Covid vaccination. LGSIL (low grade squamous intraepithelial dysplasia) (Acute) 07/2020. With+ HR HPV. 10/04/2020 colposcopy: ECC Left anterior fascicular block (Acute) Tachycardia (Acute) Abnormal EKG (Acute) History of colon polyps (Acute ~09/2019) Amenorrhea due to Depo Provera (Chronic) Controlled substance agreement broken (Chronic ~01/28/19) 01/28/2019: discontinued pt's stimulant agreement due to testing positive for THC; 05/26/2019: agreed to restart stimulant tx due to pt quitting MJ Rectovaginal fistula (Chronic ~2013) S/p childbirth injury in 2013; S/p rectovaginal fistula repair x 2 (1st ~2014 in [place]: anorectal advancement flap; 2nd [place] [facility] [place] sphincteroplasty with rectovaginal fistula closure & perineal body reconstruction) Depression (Chronic) Encounter for surveillance of injectable contraceptive (Chronic 11/20/17) Attention-deficit hyperactivity disorder, unspecified type (Chronic) Medical History Bartholin's gland abscess S/P I&D and marsupiallization of the abscess. EColi on Cx of the site. Sx resolved. No further treatment noted. Bartholin's gland abscess 12/27/17 s/p I&D marsupialization of cyst. BCC (basal cell carcinoma) (~03/2018) L forehead (nodular) and R shoulder s/p Mohs micrographic surgery 04/02/2018 Labial abscess Sessile colonic polyp (~09/2019) [facility] [place] Surgical History History of rectal surgery (~09/15/18) Rectovaginal fistula repair x 2 (1st ~2014 in [place]: anorectal advancement flap; 2nd 09[place]15/2018 [place] [facility] [place] sphincteroplasty with rectovaginal fistula closure & perineal body reconstruction); 10/20/2019 at [facility] [place] repeat corrective surgery 01/04/20 [facility] [place] RVF repair, Martius fat pad graft Status post Mohs micrographic surgery for basal cell carcinoma (BCC) Status post reversal of ileostomy (05/11/20) [facility] [place] Family History (Updated 04/26/21 @ 14:21 by Daniela Schafer) Father Essential hypertension Maternal Aunt Colon cancer Diagnosed in her 20s Aunt Melanoma Maternal Aunt Cancer Ovarian, Pt's mother's twin Mother No problems noted. Sister No problems noted. Brother No problems noted. Son No problems noted. Son No problems noted. Social History (Updated 04/26/21 @ 14:20 by Daniela Schafer) Smoking/Tobacco Use Status: Current every day Tobacco: How many years used: 10 Quit status: has quit before Second Hand Exposure: Yes Smoking risk assessment performed?: Yes Alcohol Intake: never Drug use: Occasionally Substance use type: marijuana Adopted: No Household members: family and children Housing: apartment Number of Children: 2 Do you need help understanding health information?: Never Pets and animals: Yes Pets and animals: dog(s) Sexually active: Yes Do you think of yourself as: straight/heterosexual Current gender identity: male What is your relationship status?: never How often do you talk on the phone with friends or family?: twice per week How often do you get together with friends or relatives?: once per week How often do you attend caodaism or buddhist services?: decline to answer Do you belong to any clubs or organized social groups?: no Panel score (0-1 are the most socially isolated patients): 1 What type of physical activity do you participate in: none Joann/Shinto: No preference Seatbelt use: always Helmet use: Yes Helmet use: always Drive intox or ride w/intox emergency detail driver: No Do you feel safe at home: Yes Do you feel safe in your relationship?: Yes Female Reproductive History Menstrual Duration of menses: other (amenorrhea) control method: progesterone injection History History 2 Para 2 Hx # Term Pregnancies 2 Multiple births Hx # Pregnancies Ectopic pregnancies AB induced Hx Number of Living Children AB spontaneous Exam Narrative Exam Narrative: Physical Examination General: alert, awake, cooperative, resting comfortably, no acute distress HEENT: normocephalic, atraumatic; PERRL, EOM intact, conjunctiva normal; no nasal discharge; moist mucous membranes, oral and pharyngeal mucosa normal, tolerating secretions Neck: supple, trachea midline; full ROM Chest: normal to inspection Respiratory: normal respiratory effort, speaking in full sentences, clear to auscultation, no wheezing, rales or rhonchi Cardiac: regular rate, regular rhythm, S1S2 intact, no murmurs rubs or gallops GI: abdomen soft, non-tender, non-distended; no palpable mass or hepatosplenomegaly Skin: Skin overlying right deltoid region 7 cm healing wound linear nature with central ulceration, no purulent discharge no bleeding, does have moderate surrounding induration/erythema, no lymphangitic streaking no crepitus Neuro: AAOx3, normal speech, moving all extremities Psych: Appropriate mood and affect
[2021-09-08] MEDS: Cephalexin 500 MG CAP PO (21:34)
== END 2021-09-08 21:34 | disposition home or self-care (01) ==
PROVIDERS: Emergency Provider Emergency Medicine; PCP Nurse Practitioner Family
DX: L03.113 Cellulitis of right upper limb (principal); Z48.02 Encounter for removal of sutures
CPT/HCPCS: 99283

== ENCOUNTER 2021-09-19 11:03 | Outpatient (REF) | payer MEDICAID, SELFPAY ==
--- NOTE | 2021-09-19 10:10 | PAPFT_PTH ---
PATIENT: Lexy León LOC: [facility] U#:[id number] AGE/SX: 35/F ROOM: RE09/19/[address]: Estephania Barrow : 1985 BED: DIS: 09/19/2021 SPEC #: [id number] RECD: 09/19/21 13:02 STATUS: BLAKE PAGE #: [id number] LUDY: 09/19/21 10:[address]: Estephania Barrow DEPT: [facility] Cytology RECD BY: Jennifer Beasley ENTERED: 09/19/21 13:02 SP TYPE: PAPFT OT DR: Jp Mathew, CASPER Tissues: 1 - CX/ENDOCX FOR PAP SMEARS Procedures: PAP THIN PREP/UVM Screening HPV DNA PROBE Comments: [id number]
== END 2021-09-19 11:04 | disposition home or self-care (01) ==
LOC: LBN 11:03
PROVIDERS: PCP Nurse Practitioner Family; Visit Provider Obstetrics & Gynecology Gynecology
DX: Z11.51 Encounter for screening for human papillomavirus (HPV) (principal)
CPT/HCPCS: 88142; 87624

== ENCOUNTER 2021-10-31 01:53 | Outpatient (CLI) | payer MEDICAID, SELFPAY ==
[2021-11-01 09:44] LABS: HBs Antibody, Quant <3.1 mIU/mL (See Note); Hepatitis B Surface Ab Negative (See Note)
[2021-11-01 11:28] LABS: Measles IgG Antibody Positive (See Note); Mumps Antibody IgG Positive (See Note); Varicella IgG Antibody Positive (See Note)
[2021-11-01 11:32] LABS: Rubella IgG Ab (UVM) Positive (See Note)
== END 2021-10-31 01:54 | disposition home or self-care (01) ==
LOC: LBO 01:53
PROVIDERS: PCP Nurse Practitioner Family; Visit Provider Nurse Practitioner Family
DX: Z11.59 Encounter for screening for other viral diseases (principal); Z01.84 Encounter for antibody response examination
CPT/HCPCS: 36415; 86706; 86787; 86735; 86762; 86765

== ENCOUNTER 2023-04-27 16:04 | Emergency (ER) | payer MEDICAID, SELFPAY ==
[2023-04-27 16:15] VITALS: BP 132/71; PULSE 91; RESP 16; TEMP 37.7; O2SAT 100
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
--- NOTE | 2023-04-27 17:04 | DI.RAD_ITS ---
Exam(s) XR RIBS LT PA CHEST 3V CLINICAL HISTORY L rib pain. COMPARISON: No exams were available for comparison TECHNIQUE:: PA and lateral views of the chest and four views of the left ribs were performed. FINDINGS: LUNGS: Clear. No pleural abnormality seen. HEART: Normal. MEDIASTINUM: Normal. BONES: Mildly displaced fracture right 9th rib. No compression fractures are seen in the thoracic sp ine. No bony destructive lesion is seen. OTHER FINDINGS: None. IMPRESSION: 1. Right 9th rib fracture. 2. No acute pulmonary findings.
[2023-04-27 17:40] VITALS: PULSE 87; RESP 16; O2SAT 100
== END 2023-04-27 17:43 | disposition home or self-care (01) ==
LOC: ER 17:47
PROVIDERS: Emergency Provider Physician Assistant; PCP Nurse Practitioner Family
DX: S22.31XA Fracture of one rib, right side, initial encounter for closed fracture (principal); F17.210 Nicotine dependence, cigarettes, uncomplicated; W00.0XXA Fall on same level due to ice and snow, initial encounter; Y93.22 Activity, ice hockey; Y92.39 Other specified sports and athletic area as the place of occurrence of the external cause
CPT/HCPCS: 71101; 99283

== ENCOUNTER 2023-06-17 04:54 | Outpatient (CLI) | payer MEDICAID, SELFPAY ==
[2023-06-17 12:04] LABS: Hemoglobin A1C 5.2 % (<5.7)
[2023-06-17 12:23] LABS: Calculated LDL 177 mg/dL (<100); Cholesterol 299 mg/dL (<200); HDL Cholesterol 100 mg/dL (40-60); Triglyceride 110 mg/dL (<150)
[2023-06-17 17:48] LABS: HIV-1/2 Ag & Ab Screen Negative (Negative)
[2023-06-17 17:55] LABS: Hepatitis A Antibody IgM Negative (Negative); Hepatitis B Core Antibody Negative (Negative); Hepatitis B surface Ag Negative (Negative); Hepatitis C Ab w Rflx HCV PCR Negative (Negative)
== END 2023-06-17 04:55 | disposition home or self-care (01) ==
LOC: LBO 04:54
PROVIDERS: PCP Nurse Practitioner Family; Visit Provider Nurse Practitioner Family
DX: E78.5 Hyperlipidemia, unspecified (principal); Z00.00 Encounter for general adult medical examination without abnormal findings
CPT/HCPCS: 36415; 80061; 86704; 86709; 86803; 87340; 87389; 83036

== ENCOUNTER 2023-07-14 10:35 | Outpatient (REF) | payer MEDICAID, SELFPAY ==
[2023-07-15 14:53] LABS: Chlamydia Result Negative (Negative); GC Result Negative (Negative)
== END 2023-07-14 10:36 | disposition home or self-care (01) ==
LOC: LBN 10:35
PROVIDERS: PCP Nurse Practitioner Family; Visit Provider Advanced Practice Midwife
DX: Z11.3 Encounter for screening for infections with a predominantly sexual mode of transmission (principal)
CPT/HCPCS: 87491; 87591; 87480; 87510; 87660

== ENCOUNTER 2023-10-05 10:37 | Outpatient (REF) | payer MEDICAID, SELFPAY ==
--- NOTE | 2023-10-05 10:30 | PAPFT_PTH ---
PATIENT: Lexy León LOC: [facility] U#:[id number] AGE/SX: 37/F ROOM: RE10/05/[address]: Alice Rush NP : 1985 BED: DIS: 10/05/2023 SPEC #: [id number] RECD: 10/05/23 13:06 STATUS: BLAKE PAGE #: [id number] LUDY: 10/05/23 10:[address]: Alice Rush NP DEPT: [facility] Cytology RECD BY: Jennifer Beasley ENTERED: 10/05/23 13:07 SP TYPE: PAPFT OTHR DR: Jp Mathew NP Tissues: 1 - CX/ENDOCX FOR PAP SMEARS Procedures: PAP THIN PREP/UVM Screening HPV DNA PROBE Comments: [id number] (HPV 16 & 18/45)
== END 2023-10-05 10:38 | disposition home or self-care (01) ==
LOC: LBN 10:37
PROVIDERS: PCP Nurse Practitioner Family; Visit Provider Nurse Practitioner Women's Health
DX: Z01.419 Encounter for gynecological examination (general) (routine) without abnormal findings (principal); Z12.4 Encounter for screening for malignant neoplasm of cervix; Z12.31 Encounter for screening mammogram for malignant neoplasm of breast
CPT/HCPCS: 88142; 87624

== ENCOUNTER 2023-12-14 02:11 | Outpatient (CLI) | payer MEDICAID, SELFPAY ==
--- NOTE | 2023-12-14 11:45 | DI.MAMMO_ITS ---
Exam(s) MAMMO SCREENING EXAM: MAMMO SCREENING CLINICAL HISTORY: screening TECHNIQUE: Bilateral full field digital CC and MLO mammographic images were obtained with 3D tomosyn thesis and utilizing computer aided detection (CAD). COMPARISON: This is a baseline examination. FINDINGS: Masses/Architectural Distortion: There is a 7 mm partially obscured ovoid nodule in the inferior left breast on the MLO view 6 mm from the nipple. There is an ovoid area of nodularity in the posterior medial left breast on the craniocaudad view. Microcalcifications: No suspicious pleomorphic-type are seen. Skin Thickening/Nipple Retraction: None. IMPRESSION: 1. Two areas in the left breast, 1 in the MLO and 1 on the craniocaudad view. 2. These area should be further evaluated with spot compression views. Left breast ultrasound is req uested at that time. BI-RADS Category 0 - Incomplete: Need additional imaging evaluation Breast Density - Category C - Heterogeneously dense Breast density category C or D implies that the patient has dense breast tissue. Dense breast tissue is very common and is not abnormal but dense breast tissue can make it harder to find cancer on a ma mmogram. Also, dense breast tissue may increase their breast cancer risk. This information about the result of the mammogram report was provided to the patient to raise their awareness. Use this report when you speak with the patient about their risks for breast cancer, which includes their family hist ory. At that time, you may recommend for more screening tests (Ultrasound or MRI) as they might be us eful based on their risk. A negative radiographic report should not delay biopsy if a dominant or clinically suspicious mass is present. Up to ten percent of cancers are not identified on mammography. A negative report may reinforce clinical impression. Adenosis and dense breasts may obscure an underlying neoplasm. False positive reports average 6 to 10%. Patient will receive a letter notifying them of these results.
== END 2023-12-14 02:31 ==
LOC: DI 02:11
PROVIDERS: PCP Nurse Practitioner Family; Visit Provider Nurse Practitioner Women's Health
DX: Z12.31 Encounter for screening mammogram for malignant neoplasm of breast (principal)
CPT/HCPCS: 77063; 77067

== ENCOUNTER 2023-12-16 01:48 | Outpatient (CLI) | payer MEDICAID, SELFPAY ==
--- NOTE | 2023-12-16 | DI.MAMMO_ITS ---
Exam(s) MG MAMMO SCREEN CALL BACK UNI US BREAST LT COMPLETE EXAM: US BREAST LT COMPLETE and mammo callback Uni CLINICAL HISTORY: F/U MAMMO, R92.8, TWO AREAS NODULARITY LT. TECHNIQUE: Craniocaudal and mediolateral oblique Full Field Digital Mammography views of the left br east with Computer Aided Diagnosis followed by Tomosynthesis and left breast ultrasound. All 4 quadr ants of the left breast were evaluated sonographically including the retroareolar region and the left axilla. COMPARISON: Comparison is made with baseline examination. FINDINGS: Mammography/Tomosynthesis: Masses/Architectural Distortion: The area inferiorly seen on the MLO view persists and is well-circum scribed. The area posteriorly on the craniocaudad view is less concerning on the additional view. Microcalcifictions: No suspicious pleomorphic-type are seen. Skin Thickening/Nipple Retraction: None. Complete left breast US: Echotexture: Normal appearance of the glandular tissue. Shadowing: No suspicious foci. Cyst: There is a simple cyst at the 4 o'clock position of the left breast 4 cm from the nipple measur ing 0.5 x 0.3 x 0.4 cm. There is also a simple cyst at the 8 o'clock position of the left breast 5 c m from the nipple measuring 0.3 x 0.3 x 0.4 cm. Either of these would correspond in location to the nodule seen inferiorly on the MLO view. Solid lesions: None seen. Ductal dilation: None. IMPRESSION: 1. No evidence of malignancy is noted. 2. A six-month follow-up left mammogram is requested for re-evaluation. 3. The findings were discussed with the patient on the date of the examination. BI-RADS Category 3 - 6 month - Probably Benign Finding: Recommend follow-up imaging in 6 months Breast Density - Category C - Heterogeneously dense Breast density Category C or D implies that the patient has dense breast tissue. Dense breast tissue can make it harder to find cancer on a mammogram. Dense breast tissue is also associated with an incr eased risk of breast cancer. This information about the result of the mammogram report was provided to the patient to raise their awareness. Use this report when you speak with the patient about their risks for breast cancer, which includes their family history. At that time, you may recommend additional screening tests (Ultrasoun d or MRI) as these tests may add significant information. A negative radiographic report should not delay biopsy if a dominant or clinically suspicious mass is present. Up to ten percent of cancers are not identified on mammography. A negative report may reinforce clinical impression. Adenosis and dense breasts may obscure an underlying neoplasm. False positive reports average 6 to 10%. Patient will receive a letter notifying them of these results.
== END 2023-12-16 02:08 ==
LOC: DI 01:48
PROVIDERS: PCP Nurse Practitioner Family; Visit Provider Nurse Practitioner Women's Health
DX: Z12.31 Encounter for screening mammogram for malignant neoplasm of breast (principal); R92.8 Other abnormal and inconclusive findings on diagnostic imaging of breast
CPT/HCPCS: 76642; 77063; 77067

== ENCOUNTER 2024-06-15 00:59 | Outpatient (CLI) | payer MEDICAID, SELFPAY ==
--- NOTE | 2024-06-15 08:00 | DI.MAMMO_ITS ---
Exam(s) MG MAMMO DIAGNOSTIC UNI EXAM: MG MAMMO DIAGNOSTIC UNI CLINICAL HISTORY: 6 month f/u ,simple cyst in L breast,r92.8 TECHNIQUE: Cc and MLO mammogram images were performed according to the usual protocol including computer analysis with CAD system, tomosynthesis and C-view imaging. COMPARISON: MG MG MAMMO SCREENING from 12/14/2023 MG MG MAMMO SCREEN CALL BACK UNI from 12/16/2023 FINDINGS: The left breast is composed of scattered fibroglandular densities, Breast Density category B. There has been slight decrease in prominence of an area of nodularity seen at the posterior medial in ferior left breast. More anteriorly located nodule in the inferomedial breast appears unchanged in s ize. No suspicious masses or suspicious microcalcifications are seen. No skin thickening or abnormal axillary lymph nodes are seen. IMPRESSION: BI-RADS Category 3 - Annual - Resume Annual Screening Breast Density - Category B, scattered fibroglandular densities. A negative radiographic report should not delay biopsy if a dominant or clinically suspicious mass is present. Up to ten percent of cancers are not identified on mammography. A negative report may reinforce clinical impression. Adenosis and dense breasts may obscure an underlying neoplasm. False positive reports average 6 to 10%. Patient will receive a letter notifying them of these results.
== END 2024-06-15 01:19 ==
LOC: DI 01:00
PROVIDERS: PCP Nurse Practitioner Family; Visit Provider Nurse Practitioner Women's Health
DX: N63.22 Unspecified lump in the left breast, upper inner quadrant (principal); Z12.31 Encounter for screening mammogram for malignant neoplasm of breast
CPT/HCPCS: 77061; 77065; G0279

== ENCOUNTER 2024-11-07 14:08 | Outpatient (CLI) | payer MEDICAID, SELFPAY ==
[2024-11-07 16:45] LABS: Vitamin B12 640 pg/mL (193-986); Vitamin D 25 Total 31 ng/mL (30-100)
[2024-11-07 23:05] LABS: Hepatitis C Ab w Rflx HCV PCR Negative (Negative)
[2024-11-07 23:08] LABS: HIV-1/2 Ag & Ab Screen Negative (Negative)
[2024-11-10 14:19] LABS: Syphilis IgG w/Reflex Nonreactive (Nonreactive)
== END 2024-11-07 14:09 | disposition home or self-care (01) ==
LOC: LBO 11-17 14:08
PROVIDERS: PCP Nurse Practitioner Family; Visit Provider Nurse Practitioner Women's Health
DX: R00.0 Tachycardia, unspecified (principal); R53.83 Other fatigue; Z11.3 Encounter for screening for infections with a predominantly sexual mode of transmission
CPT/HCPCS: 82306; 86803; 87389; 82607; 86780

== ENCOUNTER 2024-11-07 15:18 | Outpatient (REF) | payer MEDICAID, SELFPAY ==
[2024-11-09 11:25] LABS: Chlamydia Result Negative (Negative); GC Result Negative (Negative)
== END 2024-11-07 15:19 | disposition home or self-care (01) ==
LOC: LBN 15:18
PROVIDERS: PCP Nurse Practitioner Family; Visit Provider Nurse Practitioner Women's Health
DX: Z11.3 Encounter for screening for infections with a predominantly sexual mode of transmission (principal)
CPT/HCPCS: 87491; 87591

== ENCOUNTER 2024-11-28 09:52 | Outpatient (CLI) | payer MEDICAID, SELFPAY ==
--- NOTE | 2024-11-28 06:00 | DI.US_ITS ---
Exam(s) US PELVIS TRANSVAGINAL EXAM: US PELVIS TRANSVAGINAL CLINICAL HISTORY: menorrhagia, pelvic pain,r10.2,n92.4 TECHNIQUE: Transabdominal and transvaginal imaging was performed using standard protocol. COMPARISON: CT CT RENAL COLIC WO from 02/27/2020 FINDINGS: The bladder is unremarkable. UTERUS: Retroverted . 8.5 x 4.2 x 5.6 cm Endometrium: 9 mm . Homogeneous. Myometrium: Unremarkable. Cervix: Unremarkable. OVARIES: Right: Cyst or mass: None. Left: Cyst or mass: None. DOPPLER: Color: Symmetric and uniform flow to both ovaries. No hyperemia. CUL-DE-SAC: Free fluid: Trace IMPRESSION: 1. Normal-appearing uterus with endometrial stripe within normal limits. 2. Unremarkable bilateral ovaries. DATA REPOSITORY:
== END 2024-11-28 10:12 ==
LOC: DI 09:52
PROVIDERS: PCP Nurse Practitioner Family; Visit Provider Nurse Practitioner Women's Health
DX: R10.2 Pelvic and perineal pain (principal); N92.4 Excessive bleeding in the premenopausal period
CPT/HCPCS: 76830; 76856